=== PATIENT | female | born 2000 | race Caucasian/White ===

== ENCOUNTER 2018-08-17 07:56 | Emergency (ER) | payer OTHER ==
[~2018-08-17] VITALS: Ht 160 cm; Wt 60.0 kg
[2018-08-17 08:42] VITALS: BP 120/60
== END 2018-08-17 08:40 | disposition home or self-care (01) ==
LOC: FSED 07:56
DX: H92.01 Otalgia, right ear (principal); J02.0 Streptococcal pharyngitis
CPT/HCPCS: 83518; 99283